=== PATIENT | male | born 1965 | race Caucasian/White ===

== ENCOUNTER → 2024-10-23 | Outpatient (CLI) | payer OTHER, MEDICAID, SELFPAY ==
[2024-10-23 10:18] LABS: Basophils # (Auto) 0.1 Thou/mm3 (0.0-0.2); Basophils % (Auto) 1 % (0-2.5); Eosinophils # (Auto) 0.3 Thou/mm3 (0.0-0.5); Eosinophils % (Auto) 3 % (0-10); Hematocrit 43.1 % (41.0-53.0); Hemoglobin 14.2 g/dL (13.5-16.0); Immature Granulocytes % (Auto) 0 % (0-0); Immature Granulocytes Auto 0.02 Thou/mm3 (0.00-0.00); Lymphocytes # (Auto) 3.3 Thou/mm3 (1.0-4.8); Lymphocytes % (Auto) 33 % (10-50); Mean Corpuscular HGB Conc 32.9 g/dl (31.0-37.0); Mean Corpuscular Hemoglobin 27.6 pg (25.0-35.0); Mean Corpuscular Volume 84 fL (80-100); Monocytes # (Auto) 0.8 Thou/mm3 (0.0-0.8); Monocytes % (Auto) 8 % (0-12); Neutrophils # (Auto) 5.4 Thou/mm3 (1.8-7.7); Neutrophils % (Auto) 55 % (37-80); Nucleated Red Blood Cell % 0 /100 WBC (0); Platelet Count 370 Thou/mm3 (140-440); RDW Standard Deviation 39.1 fL (35.1-43.9); Red Blood Count 5.15 Miln/mm3 (4.50-5.90); White Blood Count 9.9 Thou/mm3 (3.8-10.6)
[2024-10-23 10:26] LABS: Creatinine MALB Rnd Ur 19 mg/dL (30-125); Microalbumin Creat Ratio 189 mg/gCrea (<30); Microalbumin, Random Urine 36 mg/L (0-300)
[2024-10-23 10:41] LABS: Glucose Estimated Average 226 mg/dL (80-131); Hemoglobin A1C 9.5 % Hgb (4.8-6.0)
[2024-10-23 10:48] LABS: Prostate Specific Antigen 0.36 ng/mL (0-4.00); T4 (Thyroxine) 10.2 mcg/dL (4.5-10.9)
[2024-10-23 10:51] LABS: Alanine Aminotransferase 28 U/L (10-49); Albumin, Serum 4.7 gm/dL (3.4-4.8); Albumin/Globulin Ratio 1.7 (1.2-2.2); Alkaline Phosphatase 93 U/L (46-116); Anion Gap 7 (7-16); Aspartate Amino Transferase 18 U/L (0-34); BUN/Creatinine Ratio 24 Ratio (12-20); Bilirubin,Total 0.4 mg/dL (0.3-1.2); Blood Urea Nitrogen 17 mg/dL (9-23); Calcium 10.4 mg/dL (8.3-10.6); Calcium (Corrected) 10.4 mg/dL (8.5-10.1); Carbon Dioxide 28.5 mMol/L (20.0-31.0); Cardiac Risk Estimate 3.6 RATIO (4.0-6.7); Chloride 102 mMol/L (98-107); Cholesterol 137 mg/dL (132-200); Creatinine (Component) 0.7 mg/dL (0.6-1.3); Free T4 (Free Thyroxine) 1.11 ng/dL (0.89-1.76); Globulin 2.7 gm/dL (2.3-3.5); Glucose 174 mg/dL (74-106); HDL Cholesterol 38 mg/dL (40-60); LDL Cholesterol,Calculated 54 mg/dL (0-130); Osmolality,Calculated 279 (275-295); Potassium 4.9 mMol/L (3.4-5.1); Sodium 137 mMol/L (136-145); Thyroid Stimulating Hormone 1.56 uIU/mL (0.55-4.78); Total Protein 7.4 gm/dL (5.7-8.2); Triglycerides 225 mg/dL (30-150); eGFR > 60 See Note
[2024-10-23 11:36] LABS: Hepatitis A Antibody IgM Non Reactive (Non React); Hepatitis B Core Antibody IgM Non Reactive (Non React); Hepatitis B Surface Antigen Non Reactive (Non React); Hepatitis C Antibody Non Reactive (Non React); Vitamin B12 717 pg/mL (211-911)
== END | disposition home or self-care (01) ==
PROVIDERS: PCP Family Medicine; Referring Provider Internal Medicine; Visit Provider Internal Medicine
DX: E11.65 Type 2 diabetes mellitus with hyperglycemia (principal); E78.2 Mixed hyperlipidemia; I11.0 Hypertensive heart disease with heart failure; I50.9 Heart failure, unspecified; E11.40 Type 2 diabetes mellitus with diabetic neuropathy, unspecified; Z79.4 Long term (current) use of insulin; Z89.612 Acquired absence of left leg above knee; E78.5 Hyperlipidemia, unspecified; I25.10 Atherosclerotic heart disease of native coronary artery without angina pectoris; J44.9 Chronic obstructive pulmonary disease, unspecified; J96.11 Chronic respiratory failure with hypoxia; G47.33 Obstructive sleep apnea (adult) (pediatric); Z87.891 Personal history of nicotine dependence
CPT/HCPCS: 36415; 80053; 80061; 80074; 82043; 82306; 82570; 82607; 83036; 84153; 84436; 84439; 84443; 85025